=== PATIENT | male | born 1985 | race African-American/Black ===

== ENCOUNTER 2017-03-06 11:46 | Emergency (ER) | payer MEDICAID ==
[2017-03-06 12:14] VITALS: BP 138/95
== END 2017-03-06 13:13 | disposition home or self-care (01) ==
LOC: ED 11:46
DX: H10.11 Acute atopic conjunctivitis, right eye (principal)

== ENCOUNTER 2017-09-03 19:49 | Emergency (ER) | payer MEDICAID ==
[~2017-09-03] VITALS: Ht 185.4 cm; Wt 103.4 kg
[2017-09-03 20:59] LABS: BASOPHIL % 0.6 % (0-2); PLATELET COUNT 174 x10^3mcL (130-400)
[2017-09-03 21:12] LABS: CARBON DIOXIDE 26.3 mmol/L (21-32); CHLORIDE SERUM 106 mmol/L (98-107); CREATININE SERUM 1.3 mg/dL (0.7-1.3); GFR1 > 60 mL/min; GLUCOSE SERUM 103 mg/dL (74-106); POTASSIUM SERUM 3.2 mmol/L (3.5-5.1); SODIUM SERUM 140 mmol/L (136-145)
[2017-09-03 21:50] VITALS: BP 162/98
== END 2017-09-03 21:50 | disposition home or self-care (01) ==
LOC: ED 19:49
PROVIDERS: Emergency Medicine
DX: E87.6 Hypokalemia (principal); R03.0 Elevated blood-pressure reading, without diagnosis of hypertension
CPT/HCPCS: 36415

== ENCOUNTER 2020-01-16 12:56 | Emergency (ER) | payer MEDICAID ==
[~2020-01-16] VITALS: Ht 182.9 cm; Wt 93.9 kg
[2020-01-16 13:05] VITALS: Ht 182.9 cm; Wt 93.9 kg
[2020-01-16 14:00] VITALS: BP 124/78
== END 2020-01-16 14:00 | disposition home or self-care (01) ==
LOC: ED 12:56
DX: N34.2 Other urethritis (principal); I10 Essential (primary) hypertension
CPT/HCPCS: 87491; 87591; J0696

== ENCOUNTER 2020-10-06 16:01 | Emergency (ER) | payer MEDICAID ==
[~2020-10-06] VITALS: Ht 188 cm; Wt 101.2 kg
[2020-10-06 16:15] VITALS: Ht 188 cm; Wt 101.2 kg
[2020-10-06 17:23] VITALS: BP 149/71
== END 2020-10-06 17:23 | disposition home or self-care (01) ==
LOC: ED 16:01
DX: N39.0 Urinary tract infection, site not specified (principal); A64 Unspecified sexually transmitted disease; I10 Essential (primary) hypertension
CPT/HCPCS: 87491; 87591; J0696